=== PATIENT | male | born 1985 | race Caucasian/White ===

== ENCOUNTER 2019-01-20 15:29 | Emergency (ER) | payer MEDICAID ==
[~2019-01-20] VITALS: Ht 177.8 cm; Wt 96.0 kg
[2019-01-20 15:45] VITALS: BP 134/82
== END 2019-01-20 16:36 | disposition home or self-care (01) ==
LOC: ED 16:30
DX: S63.521A Sprain of radiocarpal joint of right wrist, initial encounter (principal); X58.XXXA Exposure to other specified factors, initial encounter; Y93.89 Activity, other specified; Y92.009 Unspecified place in unspecified non-institutional (private) residence as the place of occurrence of the external cause; Y99.8 Other external cause status
CPT/HCPCS: 29260; 99283

== ENCOUNTER 2019-10-20 10:22 | Emergency (ER) | payer MEDICAID ==
[~2019-10-20] VITALS: Ht 182.9 cm; Wt 96.1 kg
[2019-10-20 10:24] VITALS: BP 145/99
[2019-10-20] MEDS ORDERED: METHOCARBAMOL 750 MG TABLET ONE (10:43)
[2019-10-20] MEDS ORDERED: HYDROcodone/APAP 5/325 TABLET ONE (10:44)
[2019-10-20] MEDS ORDERED: HYDROcodone/APAP 5/325 TABLET PO ONE (11:00)
[2019-10-20] MEDS ORDERED: METHOCARBAMOL 750 MG TABLET PO ONE (11:00)
== END 2019-10-20 11:22 | disposition home or self-care (01) ==
LOC: ED 11:10
DX: M54.5 Low back pain (principal); M54.6 Pain in thoracic spine
CPT/HCPCS: 99284; J7512

== ENCOUNTER 2020-10-10 10:26 | Emergency (ER) | payer MEDICAID ==
[~2020-10-10] VITALS: Ht 180.3 cm; Wt 96.3 kg
[2020-10-10 10:45] VITALS: BP 106/85
--- NOTE | 2020-10-10 11:14 | NUR ---
UA SENT TO LAB.
[2020-10-10 11:26] LABS: MICROSCOPIC INDICATED
[2020-10-10] MEDS ORDERED: SODIUM CHLORIDE 0.9% 1,000ML IVBOLUS ONE (12:00)
[2020-10-10 12:21] LABS: BASOPHILS % (AUTO) 0 % (0-1); EOSINOPHILS % (AUTO) 0 % (1-7); LYMPHOCYTES % (AUTO) 4 % (22-44); MEAN CORPUSCULAR HEMOGLOBIN 28.8 pg (27.5-34.5); MEAN CORPUSCULAR HGB CONC 34.6 g/dL (33.2-36.2); MONOCYTES % (AUTO) 8 % (2-9); NEUTROPHILS % (AUTO) 89 % (42-75); PLATELET COUNT 119 x10^3/uL (130-400); RED BLOOD COUNT 5.61 x10^6/uL (4.38-5.82); RED CELL DISTRIBUTION WIDTH 13.3 % (9.4-14.8)
[2020-10-10 12:32] LABS: ALANINE AMINOTRANSFERASE 42 U/L (12-78); ALBUMIN 3.8 g/dL (3.4-5.0); ANION GAP 7 mmol/L (5-15); CALCIUM 8.9 mg/dL (8.5-10.1); CHLORIDE 101 mmol/L (98-107)
[2020-10-10 12:34] LABS: ALKALINE PHOSPHATASE 90 U/L (45-117); BILIRUBIN,TOTAL 1.1 mg/dL (0.2-1.0); TOTAL PROTEIN 7.7 g/dL (6.4-8.2)
[2020-10-10 12:53] LABS: MD SCAN
== END 2020-10-10 13:04 | disposition home or self-care (01) ==
LOC: ED 11:33
DX: N30.00 Acute cystitis without hematuria (principal); F17.210 Nicotine dependence, cigarettes, uncomplicated
CPT/HCPCS: 36415; 80053; 81001; 85025; 87086; 99283; 99406

== ENCOUNTER 2020-10-20 10:24 | Emergency (ER) | payer MEDICAID ==
[~2020-10-20] VITALS: Ht 180.3 cm; Wt 94.3 kg
--- NOTE | 2020-10-20 10:48 | NUR ---
PT STATES "I THINK MY UTI SPREAD TO MY PROSTATE." PT STATES UTI SYMPTOMS ARE BETTER BUT NOW "WHEN I PEE I FEEL LIKE I HAVE TO S TOO". PT AFEBRILE, HR 130. PT ALSO STATING HE HAS CLEAR DISCHARGE COMING OUT OF HIS PENIS.
[2020-10-20] MEDS ORDERED: CEFTRIAXONE 250 MG ONE (11:09)
[2020-10-20] MEDS ORDERED: AZITHROMYCIN 250 MG TABLET ONE (11:09)
[2020-10-20 11:41] LABS: BASOPHILS % (AUTO) 1 % (0-1); EOSINOPHILS % (AUTO) 0 % (1-7); LYMPHOCYTES % (AUTO) 11 % (22-44); MEAN CORPUSCULAR HEMOGLOBIN 28.8 pg (27.5-34.5); MEAN CORPUSCULAR HGB CONC 34.1 g/dL (33.2-36.2); MEAN PLATELET VOLUME 9.7 fL (7.4-10.4); MONOCYTES % (AUTO) 6 % (2-9); NEUTROPHILS % (AUTO) 82 % (42-75); PLATELET COUNT 346 x10^3/uL (130-400); RED CELL DISTRIBUTION WIDTH 13.6 % (9.4-14.8)
[2020-10-20 11:50] LABS: ALBUMIN 3.2 g/dL (3.4-5.0); ANION GAP 9 mmol/L (5-15); CALCIUM 8.9 mg/dL (8.5-10.1); CHLORIDE 104 mmol/L (98-107)
[2020-10-20 11:52] LABS: CREATININE 0.96 mg/dL (0.7-1.3)
[2020-10-20] MEDS ORDERED: AZITHROMYCIN 500 MG TABLET PO ONE (12:00)
[2020-10-20] MEDS ORDERED: CEFTRIAXONE 250 MG IM ONE (12:00)
[2020-10-20 12:06] LABS: MD SCAN
[2020-10-20 13:01] VITALS: BP 134/68
== END 2020-10-20 13:04 | disposition home or self-care (01) ==
LOC: ED 11:08
DX: N34.2 Other urethritis (principal); F17.200 Nicotine dependence, unspecified, uncomplicated
CPT/HCPCS: 36415; 80048; 82040; 85025; 87491; 87591; 96372; 99283; J0696